=== PATIENT | female | born 1985 | race African-American/Black ===

== ENCOUNTER 2017-06-13 21:46 | Observation (INO) | payer BC ==
[~2017-06-13] VITALS: Ht 182.9 cm; Wt 110.2 kg
[2017-06-13] MEDS ORDERED: PNV1TABL76 MT (23:22)
== END 2017-06-13 23:43 | disposition home or self-care (01) ==
LOC: L&D 21:46
PROVIDERS: ADMIT Obstetrics & Gynecology; ATTEND Obstetrics & Gynecology
DX: O26.893 Other specified pregnancy related conditions, third trimester (principal); R10.2 Pelvic and perineal pain; Z3A.29 29 weeks gestation of pregnancy
CPT/HCPCS: 76805; 76818; 99281; G0378